=== PATIENT | female | born 1980 | race Caucasian/White ===

== ENCOUNTER 2019-04-01 09:36 | Emergency (ER) | payer OTHER ==
[~2019-04-01] VITALS: Ht 167.6 cm; Wt 78.5 kg
[2019-04-01 09:43] VITALS: Ht 167.6 cm; Wt 78.5 kg
[2019-04-01 10:43] LABS: BASOPHIL % 1.5 % (0-2); PLATELET COUNT 306 x10^3mcL (130-400)
[2019-04-01 10:52] LABS: CALCIUM 9.1 mg/dL (8.5-10.1); CARBON DIOXIDE 28.4 mmol/L (21-32); CHLORIDE SERUM 104 mmol/L (98-107); CREATININE SERUM 0.9 mg/dL (0.6-1.0); GFR1 > 60 mL/min; GLUCOSE SERUM 84 mg/dL (74-106); POTASSIUM SERUM 3.3 mmol/L (3.5-5.1); SODIUM SERUM 141 mmol/L (136-145)
[2019-04-01 12:04] VITALS: BP 132/84
== END 2019-04-01 12:04 | disposition home or self-care (01) ==
LOC: ED 09:36
PROVIDERS: Emergency Medicine
DX: K04.7 Periapical abscess without sinus (principal); R07.89 Other chest pain; F17.210 Nicotine dependence, cigarettes, uncomplicated
CPT/HCPCS: 36415; 99406; J1885; Q0092

== ENCOUNTER 2019-05-12 21:47 | Inpatient (IN) | payer OTHER ==
[~2019-05-12] VITALS: Ht 152.4 cm; Wt 68.0 kg
--- NOTE | 2019-05-12 21:58 | NUR ---
PATIENT WAS BROUGHT IN BY EMS WITH REPORT OF PATIENT CALLINGG 911 REPORTING SHE IS SCARED. PATIENT IS NOT GIVING ANY INFORMATION. WEEPY AND APPEARS ANXIOUS. PATIENT WAS SEEN BY MD. EKG WAS DONE. PATIENT SINGING AND TALKINGTO HERSELF.
[2019-05-12 22:18] LABS: BASOPHIL % 0.9 % (0-2); PLATELET COUNT 317 x10^3mcL (130-400)
[2019-05-12 22:19] LABS: RED CELL DISTRIBUTION WIDTH 15.1 % (11.5-14.5)
--- NOTE | 2019-05-12 22:28 | NUR ---
PATIENT IS UNCOOPERATIVE, REFUSING BLOOD DRAW, REFUSING TO REMOVE HER CLOTHER FOR XRAY. PATIENT HAVING BOUTS OF BEING WEEPY.MD AWARE PATIENT IS REFUSING TX, STATING SHE WANTS TO LEAVE BUT CANNOT TELL WHERE SHE LIVES.
--- NOTE | 2019-05-12 22:30 | NUR ---
PT SINUS TACYCARDIA ON CM PT HAVING HALLUCINATIONS AND CRYING TALKING TO HER SISTER, FELIX, NO FAMILY MEMBER AT BEDSIDE AT THIS TIME, MD MORTON MADE AWARE, PER MD MORTON PLACE PT ON SOFT RESTRAINTS, RESTRAINT FORM SIGNED BY MD MORTON AND PLACED IN PT CHART, BUE AND BLE SOFT RESTRAINTS IN PLACED, +PMSC TO ALL EXTREMITIES, SHIRIN POWERS MADE AWARE.
--- NOTE | 2019-05-12 22:31 | NUR ---
PT MOM CONTACTED PER PCI X2, HENRI [phone], NO ANSWER AND VOICEMAIL NOT SET-UP, UNABLE TO LEAVE A MESSAGE WITH [facility] [place], MD MORTON AND SHIRIN RN MADE AWARE
[2019-05-12 22:32] LABS: CALCIUM 8.7 mg/dL (8.5-10.1); CHLORIDE SERUM 102 mmol/L (98-107); CREATININE SERUM 0.9 mg/dL (0.6-1.0); GFR1 > 60 mL/min; GLUCOSE SERUM 81 mg/dL (74-106); POTASSIUM SERUM 3.7 mmol/L (3.5-5.1); SODIUM SERUM 140 mmol/L (136-145)
[2019-05-12 22:37] LABS: ALBUMIN 3.9 g/dL (3.4-5.0); ALKALINE PHOSPHATASE 81 U/L (46-116); ALT/SGPT 19 U/L (14-59); AST/SGOT 18 U/L (15-37); BILIRUBIN TOTAL 0.62 mg/dL (0.20-1.00); CHOLESTEROL 191 mg/dL (<200); TOTAL PROTEIN, SERUM 6.8 g/dL (6.4-8.2)
--- NOTE | 2019-05-12 22:59 | NUR ---
INFORMED OF PT NEED TO BE PLACED IN RESTRAINTS FOR PT SAFETY. PT CONTINUES TO BE ALTERED, UNABLE TO CLEARLY ANSWER QUESTIONS. PT REPEATEDLY STATING "I JUST WANT TO GO HOME", HOWEVER UNABLE TO PROVIDE HER NAME, ADDRESS, OR ANY INFORMATION. PT REPEATEDLY STATING "I JUST WANT TO GO HOME". EXPLAINED TO PT THAT SHE IS NOT BEHAVING APPROPRIATELY AND UNABLE TO ANSWER OUR QUESTIONS OR PROVIDE US WITH INFORMATION AND WOULD BE UNSAFE FOR HER TO LEAVE THE HOSPITAL IN HER CONDITION. PT REPLIED "I DIDN'T SAY ANYTHING. I'M NOT GOING TO DO ANYTHING. WHY IS THAT UNSAFE?". THEN STARTED REPEATING "WHY ARE YOU GUYS DOING TO THIS ME?" AND BEGAN CRYING. PT ABLE TO FOLLOW INSTRUCTIONS TO LAY BACK ON THE BED. PT CLOTHING REMOVED AND PLACED IN HOSPITAL GOWN. THEN PT YELLED OUT "IS THAT MY MOM? IT CAN'T BE MY MOM! SHE'S GOING TO IF SHE'S HERE." INFORMED PT THAT NO ONE IS HERE FOR HER AT THIS TIME. THEN PT YELLED OUT "IS THAT MY SISTER? I CAN HEAR HER VOICE! IS THAT MY SISTER?". ASKED PT TO TELL ME HER MOTHER AND SISTER'S NAME, PT JUST CONTINUED TO CRY OUT LOUD AND KEPT ASKING IF HER SISTER WAS HERE. THEN SHE STATED "FELIX" IS HER SISTER'S NAME. WHILE PLACING PT ON RESTRAINTS PT LOOKED AT ME AND EMT GENA STATING "WHY ARE YOU SO MEAN?".EXPLAINED TO PT THAT WE ARE HERE TO HELP HER. PT CONTINUED TO CRY AND RETURNED TO LAYING POSITION.
--- NOTE | 2019-05-13 00:09 | NUR ---
PATIENT IS UNCOOPERATIVE, TOOK THE MONITOR OFF EXPRESSING SHE WANTS TO LEAVE.SHE WAS PUT IN DIEUDONNE WRIST AND LEG RESTRAINT.PATIENT IS CALM AND SLEEPING.
[2019-05-13 00:59] LABS: AMPHETAMINE QUAL UR POSITIVE (See below)
--- NOTE | 2019-05-13 01:30 | NUR ---
REMOVED RESTRAINTS FROM DIEUDONNE LOWER EXTREMITIES.PT IS SLEEPING WITH RESP EVEN AND UNLABORED. REMAINS ON SCHOOL BUS MECHANIC AND VIEW FROM NURSES' STATION.
[2019-05-13 01:36] LABS: UA SPECIFIC GRAVITY >=1.030 (1.005-1.035); microscopic required? YES; urine erythrocyte 1+ (NEGATIVE)
--- NOTE | 2019-05-13 02:20 | NUR ---
REMOVED DIEUDONNE UPPER RESTRAINTS.
--- NOTE | 2019-05-13 02:26 | NUR ---
ADMITTED PT FROM ER FOUND ALTERED IN THE [place] STATION LAST NIGHT AND BROUGHT IN BY PARAMEDICS.PT DROWSY BUT EASILY AROUSABLE.REFUSED ANY CARE AT THIS TIME AND REFUSING TO ANSWERS ANY QUESTIONS AT THIS TIME.NO AGITATION AT THIS TIME.NURSE AT BEDSIDE TO ASSIST WITH ADLS.BP 112/76 MMHG,HR 96.ATTEMPTED TO CALL MOTHER BUT VOICEMAIL NOT SET-UP TO LEAVE MESSAGE.WILL TRY AGAIN LATER.ADMISSION CARE RENDERED,WILL CONTINUE TO MONITOR.
--- NOTE | 2019-05-13 02:30 | NUR ---
REPORT WAS GIVEN TO TIMOTHY. PATIENT TRANSPOERTED TO ROOM 216.
[2019-05-13 02:37] VITALS: BP 112/76
--- NOTE | 2019-05-13 05:06 | NUR ---
PT SLEPT THROUGHOUT THE NIGHT. NO ACUTE EVENTS OVERNIGHT. COMFORT AND SAFETY MEASURES MAINTAINED. ALL NEEDS ASSESSED AND ATTENDED TO. WILL CONTINUE TO MONITOR AND ENDORSE CARE TO DAY SHIFT NURSE.
[2019-05-13 05:47] VITALS: BP 100/63
[2019-05-13 06:34] LABS: CALCIUM 7.7 mg/dL (8.5-10.1); CARBON DIOXIDE 26.4 mmol/L (21-32); CHLORIDE SERUM 104 mmol/L (98-107); CREATININE SERUM 0.7 mg/dL (0.6-1.0); GFR1 > 60 mL/min; GLUCOSE SERUM 60 mg/dL (74-106); MAGNESIUM 1.7 mg/dL (1.8-2.4); PHOSPHOROUS 3.5 mg/dL (2.5-4.9); POTASSIUM SERUM 3.2 mmol/L (3.5-5.1); SODIUM SERUM 140 mmol/L (136-145)
[2019-05-13 06:59] LABS: BASOPHIL % 0.4 % (0-2); PLATELET COUNT 262 x10^3mcL (130-400)
[2019-05-13 07:00] LABS: RED CELL DISTRIBUTION WIDTH 15.3 % (11.5-14.5)
--- NOTE | 2019-05-13 07:30 | NUR ---
PT WILL MOVE TO PHYSICAL STIMULI, BUT REMAINS SLEEPING. RESP EVEN AND UNLABORED. NO DISTRESS NOTED. AFEBRILE, VS WNL. NORMAL S1S2 NOTED. ABDOMEN SOFT, NONTENDER, NONDISTENDED. BOWEL SOUNDS ACTIVE X4. PT HAS R LATERAL THIGH SCRATCHES, ANITA. NO S/S OF INFECTION NOTED. IVF RUNNING TO RFA. SITE WNL. CALL LIGHT WITHIN REACH. BED IN LOWEST POSITION. EPIC BEACON ANALYST IN ROOM ON ONE TO ONE SUPERVISION.
--- NOTE | 2019-05-13 08:14 | NUR ---
SPOKE WITH KELSI (#[id number]) FROM [facility]ISON CONTROL ( ). KELSI STATE SHE WILL CLOSE OUT THIS CASE, THE VS ARE STABLE AND THE TX ORDERED IS APPROPRIATE. GIO MEDINA CHARGE NURSE MADE AWARE.
[2019-05-13 08:59] VITALS: BP 132/66
--- NOTE | 2019-05-13 10:00 | NUR ---
DR. SOARES AND MED TEAM MET WITH PT BUT UNABLE TO AWAKEN HER. RESP EVEN AND UNLABORED. VS WNL. WILL CONTINUE TO MONITOR. VICE PRESIDENT NETWORK AT BEDSIDE ON ONE TO ONE SUPERVISION. CALL LIGHT WITHIN REACH.
--- NOTE | 2019-05-13 12:40 | NUR ---
PT AWAKED TO VERBAL STIMULI THEN FEEL BACK TO SLEEP. PT REFUSED TO USE BEDPAN AT THIS TIME. DUE IV MED GIVEN. PRINTED CIRCUIT BOARD PANELS PLATER IN ROOM ON ONE TO ONE SUPERVISION. FALL PROTOCOL IN PLACE. RESP EVEN AND UNLABORED. NO DISTRESS NOTED. CALL LIGHT WITHIN REACH.
--- NOTE | 2019-05-13 15:15 | NUR ---
PT IS AWAKE, AAOX4. AGITATED, CRYING, STATING, "I WANT TO GO HOME." ATIVAN 2MG IVP GIVEN. PT IS CALM AND COOPERATIVE AT THIS TIME. CALL LIGHT WITHIN REACH. BED IN LOW POSITION. SURETY BOND AGENT IN ROOM ON ONE TO ONE SUPERVISION.
--- NOTE | 2019-05-13 15:43 | NUR ---
PT WILL MOVE TO PHYSICAL STIMULI, BUT REMAINS SLEEPING. RESP EVEN AND UNLABORED. NO DISTRESS NOTED. AFEBRILE, VS WNL. NORMAL S1S2 NOTED. ABDOMEN SOFT, NONTENDER, NONDISTENDED. BOWEL SOUNDS ACTIVE X4. PT HAS R LATERAL THIGH SCRATCHES, ANITA. NO S/S OF INFECTION NOTED. IVF RUNNING TO RFA. SITE WNL. CALL LIGHT WITHIN REACH. BED IN LOWEST POSITION.
--- NOTE | 2019-05-13 17:00 | NUR ---
URINE SAMPLE TAKEN TO LAB FOR URINE CX. DR. CHANEY SPOKE WITH PT'S MOTHER WHILE PT WAS SLEEPING. DR. CHANEY STATED ONCE THE PT IS MORE AWAKE A PSYCH EVAL WILL BE ORDERED. FLUIDS AND ATIVAN PRN WILL BE GIVEN ALONG WITH FOLLOW UP LABS. MOTHER AGREED WITH POC.
[2019-05-13 17:38] VITALS: BP 102/60
--- NOTE | 2019-05-13 18:12 | NUR ---
MAG IVPB STARTED. PT IS AAOX4, GROGGY WHEN AWAKE, MOSTLY SLEEPING THROUGH OUT THE DAY. RESP EVEN AND UNLABORED. VS WNL. NO DISTRESS NOTED. DRY END TESTER AT BESIDE ON ONE TO ONE SUPERVISION. CALL LIGHT WITHIN REACH.
[2019-05-13 19:25] VITALS: BP 92/60
--- NOTE | 2019-05-13 19:25 | NUR ---
RECEIVED PT ASLEEP BUT EASILY AROUSABLE AND WENT TO REACH FOR HER LINES RIGHT AWAY WHEN AWAKENED.DISCOURAGED BEHAVIOR.REFUSED TO ANSWERS ANY QUESTION AT THIS TIME.BP 92/60 MMHG,HR 80.K-RIDER INFUSING AT THIS TIME AND TOLERATING WELL.ATIVAN 2 MG IVP ADMINISTERED.RECEIVED A CALL FROM MOTHER AND INFORMED NURSE THAT THIS WEEK PT VERBALIZED TO SISTER THAT SHE WANT TO END HER LIFE.S[place] AND RARELY COMMUNICATE WITH FAMILY AND SUDDENLY REACH OUT TO SISTER AND INFORMED HER OF HER PLAN.SITTER AT BEDSIDE AT THIS TIME.DOESN'T VERBALIZED ANYTHING AT THIS TIME.WILL CLOSELY MONITOR.WILL INFORM MD ESTEVEZ.
--- NOTE | 2019-05-13 21:56 | NUR ---
DR. MEDEROS AND DR. VINES MADE AWARE OF MOTHERS CONCERN OF PT'S VERBALIZING SHE WANTS TO END HER LIFE THIS WEEK.WILL CONSULT PSYCH WHEN PT MORE RESPONSIVE.
--- NOTE | 2019-05-14 04:38 | NUR ---
PT SLEPT WELL ALL NIGHT WITH NURSE AT BEDSIDE TO ASSIST WITH ADLS.NO VERBALIZATION OF SUICIDE.ENCOURAGED TO VERBALIZED FEELINGS BUT CONTINUE TO REFUSED ALL QUESTIONS ASKED.ALL NEEDS MET.WILL CONTINUE TO MONITOR.
[2019-05-14 06:29] LABS: BASOPHIL % 0.5 % (0-2); PLATELET COUNT 275 x10^3mcL (130-400)
[2019-05-14 06:34] VITALS: BP 109/72
[2019-05-14 07:07] LABS: CALCIUM 7.9 mg/dL (8.5-10.1); CARBON DIOXIDE 25.9 mmol/L (21-32); CHLORIDE SERUM 106 mmol/L (98-107); CREATININE SERUM 0.6 mg/dL (0.6-1.0); GFR1 > 60 mL/min; PHOSPHOROUS 2.7 mg/dL (2.5-4.9); POTASSIUM SERUM 3.9 mmol/L (3.5-5.1); SODIUM SERUM 140 mmol/L (136-145)
[2019-05-14 07:16] LABS: RED CELL DISTRIBUTION WIDTH 14.9 % (11.5-14.5)
[2019-05-14 07:35] LABS: GLUCOSE SERUM 57 mg/dL (74-106)
--- NOTE | 2019-05-14 08:02 | NUR ---
DR CHANEY PAGED FOR LAB CALL ABOUT GLUCOSE OF 57. GLUCOSE CHECKED AND CAME BACK 50 AND 56. PT IS ASYMPTOMATIC, REPORTS NO HISTORY OF DM, IS EATING BREAKFAST. WILL MONITOR.
[2019-05-14 09:00] VITALS: BP 108/63
[2019-05-14 13:33] VITALS: BP 97/59
--- NOTE | 2019-05-14 13:59 | NUR ---
IN TO SEE PATIENT AND ASSESS NEEDS BEFORE GOING TO LUNCH. PAITENT RESTING COMFORTABLY IN BED WITH SITTER AT BEDSIDE. ALL NEEDS MET. WILL REASSESS AFTER LUNCH.
[2019-05-14 17:45] VITALS: BP 104/69
--- NOTE | 2019-05-14 19:05 | NUR ---
REPORT RECIEVED FROM DAY SHIFT RN. PATIENT WAS SEEN AND IS RESTING COMFORTABLY IN BED A/OX4. ANSWERING QUESTIONS WITH CLEAR SPEECH AND APPROPIATELY. FAMILY AT BEDSIDE. NO DISTRESS NOTED DENIES CHEST PAIN/PRESSURE. NO C/O PAIN. IV TO THE RFA. PATENT AND INTACT. NO REDNESS OR SWELLING NOTED. BREATHING EVEN AND UNLABORED ON ROOM AIR. NO SOB OR RESP DISTRESS NOTED. COMFORT AND SAFETY MEASURES IN PLACE. CALL LIGHT IS WITHIN REACH. BED IS LOCKED AND IN THE LOWEST POSITION. SIDE RAILS UP X2. CALL LIGHT IS WITHIN REACH. WILL CONTINUE TO MONITOR.
--- NOTE | 2019-05-14 19:38 | NUR ---
REPORT GIVEN TO MARIO ALBERTO POWERS. PATIENT RESTING COMFOETABLY IN BED WITH PARENTS AT BEDSIDE. PATIENT IS REQUESTING TO GO HOME. INFORMED PATIENT THAT WE ARE WAITING FOR DR ALLEN. ALL QUESTIONS AND CONCERNS ADDRESSED. ALL CARES ENDORSED.
--- NOTE | 2019-05-14 20:15 | NUR ---
PATIENT WANTS TO LEAVE A. DR RAMOS MADE AWARE. SHE SAID SHE WILL CONSULT WITH DR HUDSON
--- NOTE | 2019-05-14 20:40 | NUR ---
RANDOM BS CHECK DONE. PATIENT STATES SHE FEELS LIKE HER BS IS LOW, SWEATY, AND HUNGER. BS AT 147. GAVE SANDWICH AND JUICE. NO DISTRESS NOTED.
--- NOTE | 2019-05-14 21:05 | NUR ---
DR RAMOS CALLED SAYING SHE'LL SPEAK WITH THE PATIENT ABOUT LEAVING AMA
--- NOTE | 2019-05-14 21:28 | NUR ---
DR RAMOS SPOKE WITH PATIENT AND PATIENT DECIDED TO STAY
--- NOTE | 2019-05-14 23:53 | NUR ---
PATIENT GOT DRESSES AND SAID SHE WANTED TO LEAVE. PATIENT CALLED MOTHER'S PHONE NUMBER MULTIPLES TIMES WITH NOT ANSWER. INFORMED PATIENT THAT IT IS NOT SAFE FOR HER TO LEAVE. PATIENT SAID SHE WILL WALK HOME TO [place]. PATIENT AGREED TO STAY AND WAIT FOR MOM IN THE MORNING. MADDI GROVES PLACED GOWN BACK ON PATIENT. LEADS REAPPLIED WELL. PATIENT SAYING SOMEONE IS GOING TO GET HER. REPEATEDLY SAYING "THEY'RE GOING TO GET ME". PATIENT WANTS SLEEPING PILL. ADMINISTERED AMBIEN PRESCRIBED. NO DISTRESS NOTED. CALL LIGHT IS WITHIN REACH. WILL CONTINUE TO MONITOR.
--- NOTE | 2019-05-15 00:06 | NUR ---
PATIENT'S MOTHER CALLED. CHARGE NURSE SPOKE WITH HER AND DR RAMOS WILL SPEAK TO HER. UPDATED DR RAMOS ON SITUATIONS WELL.
--- NOTE | 2019-05-15 01:27 | NUR ---
TELE PSYCH CONSULT INITIATED. AWAITING CALL BACK.
--- NOTE | 2019-05-15 02:19 | NUR ---
TELE PSYCH CALLED BACK. DID NOT FINISHED CONSULT AND CONSULT WAS CANCELLED BY TELE PSYCH PHYSICIAN BECAUSE HE SAID THE PATIENT WAS "TOO SLEEPY AND UNCOOPERATVIE. DID NOT WANT TO ANSWER QUESTIONS". ALSO [facility] AND [facility] STOPPED WORKING DURING CONSULT. PER TELE PSYCH DOCTOR, RE INITIATE IN THE MORNING WHEN THE PATIENT IS MORE AWAKE. DR RAMOS AWARE.
--- NOTE | 2019-05-15 05:43 | NUR ---
RESTED IN LONG INTERVALS THROUGHOUT THE NIGHT. NO ACUTE CHANGES NOTED. BREATHING EVEN AND UNLABORED ON ROOM AIR. NO SOB NOTED. NO DISTRESS NOTED. IV TO THE RFA. PATENT AND INTACT. NO REDNESS OR SWELLING NOTED. SITTER AT BEDSIDE. COMFORT AND SAFETY MEASURES IN PLACE. SITTER AT BEDSIDE. CALL LIGHT IS WITHIN REACH. WILL CONTINUE TO MONITOR.
[2019-05-15 06:19] VITALS: BP 99/57
[2019-05-15 06:32] LABS: BASOPHIL % 0.5 % (0-2); PLATELET COUNT 271 x10^3mcL (130-400)
[2019-05-15 06:45] LABS: CALCIUM 8.1 mg/dL (8.5-10.1); CHLORIDE SERUM 107 mmol/L (98-107); CREATININE SERUM 0.7 mg/dL (0.6-1.0); GFR1 > 60 mL/min; GLUCOSE SERUM 111 mg/dL (74-106); MAGNESIUM 1.8 mg/dL (1.8-2.4); PHOSPHOROUS 3.2 mg/dL (2.5-4.9); SODIUM SERUM 142 mmol/L (136-145)
[2019-05-15 06:58] LABS: RED CELL DISTRIBUTION WIDTH 14.9 % (11.5-14.5)
--- NOTE | 2019-05-15 07:20 | NUR ---
RECEIVED PT. IN BED A/A/O X3. NO SOB, NO N/V NOTED. PT. APPEARS NOT TO WANT TO ENGAGE IN CONVERSATION MUCH. PT. DENIES ANY PAIN AT THIS TIME. PT. DENIES ANY SUICIDAL IDEATION AT THIS TIME. IV SITE NOTED TO R FA. BED IN LOW POS., CALL LIGHT WITHIN REACH. SIDE RAILS UP X3.
[2019-05-15 08:19] VITALS: Ht 152.4 cm; Wt 68.0 kg
[2019-05-15 10:05] VITALS: BP 96/59
[2019-05-15 13:00] VITALS: BP 109/67
--- NOTE | 2019-05-15 14:13 | NUR ---
PT. APPEARS VERY AGITATED AND RESTLESS. PT. REMOVED GOWN AND TELE. MONITOR. PT. PUT ON HER REGULAR CLOTHES AND STATED " I'M LEAVING. I NEED TO LEAVE." ATIVAN 2MG IV GIVEN.
--- NOTE | 2019-05-15 16:03 | NUR ---
PT. APPEARS CALM IN BED AT THIS TIME.
--- NOTE | 2019-05-15 16:18 | NUR ---
PT. STATED " I FEEL VERY ANXIOUS RIGHT NOW. CAN I HAVE MY MEDICATION AGAIN ? " ATIVAN 2MG IV GIVEN.
--- NOTE | 2019-05-15 17:27 | NUR ---
REMAINS IN STABLE CONDITION AT THIS TIME. WILL CONTINUE TO MONITOR. LITIGATION ASSISTANT AT BEDSIDE TO MAINTAIN SAFETY.
[2019-05-15 17:29] VITALS: BP 101/61
--- NOTE | 2019-05-15 20:10 | NUR ---
Resting at this time. Verbally responsive. Restless and anxious earlier, ativan given as ordered with good effect. Calm at this time. No respiratory distress noted on room air. Denies pain. Denies n/v. Mother at the bedside. Will cont.to monitor. Safety maintained. Call light within reach.
[2019-05-15 21:00] VITALS: BP 121/71
--- NOTE | 2019-05-15 23:00 | NUR ---
Seen by Dr. Wise.
--- NOTE | 2019-05-16 05:07 | NUR ---
Afebrile. No significant change in condition noted. Calm at this time. No suicidal ideation noted. Safety maintained. Sitter present.
[2019-05-16 05:57] VITALS: BP 92/60
[2019-05-16 06:44] LABS: BASOPHIL % 0.8 % (0-2); PLATELET COUNT 265 x10^3mcL (130-400)
[2019-05-16 06:45] LABS: CALCIUM 7.9 mg/dL (8.5-10.1); CARBON DIOXIDE 28.8 mmol/L (21-32); CHLORIDE SERUM 107 mmol/L (98-107); CREATININE SERUM 0.7 mg/dL (0.6-1.0); GFR1 > 60 mL/min; GLUCOSE SERUM 86 mg/dL (74-106); MAGNESIUM 1.6 mg/dL (1.8-2.4); PHOSPHOROUS 3.3 mg/dL (2.5-4.9); POTASSIUM SERUM 3.8 mmol/L (3.5-5.1); SODIUM SERUM 142 mmol/L (136-145)
[2019-05-16 06:56] LABS: RED CELL DISTRIBUTION WIDTH 14.6 % (11.5-14.5)
--- NOTE | 2019-05-16 07:30 | NUR ---
RECEIVED PT FROM CONSTRUCTION COST ESTIMATOR RN. Kennedy/VITO. TELE#30. DENIES CHEST PAIN/PRESSURE. RESPIRATIONS EQUAL AND UNLABORED ON RA. DENIES SOB. OT DEBUES ANY PAIN AT THIS TIME. PT STATES "I AM STARTING TO FEEL A LITTLE ANXIOUS." IV TO LH SALINE LOCKED. NO REDNESS OR SWELLING NOTED. NOTED SCRATCHEST TO THIGH, SUPERVISOR [employer]. NO DRAINAGE OR SWELLING NOTED. PT DENIES ANY THOUGHTS OF HARMING HERSELF OR OTHERS. [address], SITTER AT BEDSIDE. WILL CONTINUE TO MONITOR. CALL LIGHT IN REACH. BED IN LOWEST POSITION.
--- NOTE | 2019-05-16 09:13 | NUR ---
Packet received via fax. Will begin looking for placement for this pt. Will contact with any updates.
[2019-05-16 09:30] VITALS: BP 106/64
--- NOTE | 2019-05-16 09:33 | NUR ---
PT IN BED SLEEPING. NO ACUTE RESP DISTRESS NOTED ON RA. GIVEN PO MEDS. TOLERATED WELL. IV SALINE LOCKED TO LH. NO REDNESS OR SWELLING NOTED. PT DENIES ANY THOUGHTS OF HARMING HERSELF OR OTHERS AT THIS TIME. SITTER AT BEDSIDE. WILL CONTINUE TO MONITOR. CALL LIGHT IN REACH. BED IN LOWEST POSITION.
--- NOTE | 2019-05-16 09:38 | NUR ---
Contacted the following facilities regarding placement: [facility]: s/w [place], state unable to accept pt at this time. [facility]: Rang continuously, unable to leave message. [facility]: s/w [place], states no beds at this time, but will review packet for future openings. packet faxed for waitlist. [facility]: no beds at this time. [facility]: s/w Kaley, states no beds at this time, is not accepting packets right now.
--- NOTE | 2019-05-16 14:40 | NUR ---
PT IN BED RESTING. NO ACUTE RESP DISTRESS NOTED ON RA. PT C/O FEELING ANXIOUS. MEDICATED PER EMAR. SITTER AT BEDSIDE. [address] WILL CONTINUE TO MONITOR. CALL LIGHT IN REACH. BED IN LOWEST POSITION.
--- NOTE | 2019-05-16 17:20 | NUR ---
PT SITTING UP IN BED. PT STATES "I FEEL REALLY ANXIOUS. I REALLY WANT TO JUST GO. I WANT TO GET OUT OF HERE." PT ASKING WHAT WOULD HAPPEN IF SHE WERE TO LEAVE. PT INFORMED IF SHE LEFT DUE TO THE HOLD WE WOULD HAVE TO CALL POLICE DEPARTMENT. MOTHER AT BEDSIDE. PT ABLE TO CALM DOWN. PT STATES "I JUST WANT TO REST" SITTER AT BEDSIDE. WILL CONTINUE TO MONITOR. CALL LIGHT IN REACH. BED IN LOWEST POSITION.
[2019-05-16 17:25] VITALS: BP 110/57
--- NOTE | 2019-05-16 18:46 | NUR ---
PT SITTING UP IN BED. PT CRYING. FAMILY AT BEDSIDE. PT STATING "SOMEONE IS OUT TO GET ME" PT VERY ANXIOUS. CALLED FLIGHT OPERATIONS INSPECTOR PHONE SPOKE WITH DR. RAMOS PER DR. RAMOS WILL ORDER ATIVAN IV ONE TIME DOSE.
[2019-05-16 19:30] VITALS: BP 113/80
--- NOTE | 2019-05-16 19:43 | NUR ---
[facility] NOC shift is aware of patient and will continue to call contracted [facility] facilities for bed placement.
--- NOTE | 2019-05-16 22:21 | NUR ---
Still no beds available at the following [facility] contracted facilities. [facility], spoke with Pam. [facility], spokew hetal Hernandez. [facility], left message @ [phone]. [facility], spoke with Abebe. [facility], spoke with Jennifer. [facility], spoke with Jennifer. [facility], spoke with Katerina. [facility], spoke with Sj. Unit will be notified if and when a bed becomes available.
--- NOTE | 2019-05-16 22:35 | NUR ---
PT C/O INSOMNIA. MEDICATED WITH AMBIEN PER OCT. WILL CONTINUE TO MONITOR.
--- NOTE | 2019-05-17 00:05 | NUR ---
PT LAYING DOWN IN BED WITH EYES CLOSED, BREATHING EVEN AND UNLABORED ON RA. NO ACUTE DISTRESS NOTED. SITTER AT BESIIDE. BED AT LOWEST SETTING. SIDE RAILS X2 UP. CALL LIGHT WITHING REACH. WILL CONTINUE TO MONITOR.
--- NOTE | 2019-05-17 05:52 | NUR ---
PT SLEPT AT INTERVALS THROUGHOUT THE NIGHT. BREATHING EVEN AND UNLABORED ON RA. NO SIGNIFICANT CHANGE DURING SHIFT. ALL NEEDS ASSESSED AND ATTENDED TO. NO ACUTE DISTRESS NOTED. PT DENIES HAVING SUICIDAL THOUGHTS. SITTER AT BEDSIDE. BED AT LOWEST SETTING. SIDE RAILS X2 UP. CALL LIGHT WITHING REACH. WILL ENDORSE CARE TO AM NURSE.
[2019-05-17 06:07] VITALS: BP 91/53
[2019-05-17 06:48] LABS: BASOPHIL % 0.7 % (0-2); PLATELET COUNT 267 x10^3mcL (130-400)
[2019-05-17 07:14] LABS: RED CELL DISTRIBUTION WIDTH 15.2 % (11.5-14.5)
[2019-05-17 07:15] LABS: CALCIUM 7.6 mg/dL (8.5-10.1); CARBON DIOXIDE 24.8 mmol/L (21-32); CHLORIDE SERUM 107 mmol/L (98-107); CREATININE SERUM 0.8 mg/dL (0.6-1.0); GFR1 > 60 mL/min; GLUCOSE SERUM 89 mg/dL (74-106); MAGNESIUM 1.6 mg/dL (1.8-2.4); POTASSIUM SERUM 3.7 mmol/L (3.5-5.1); SODIUM SERUM 141 mmol/L (136-145)
--- NOTE | 2019-05-17 07:30 | NUR ---
RECEIVED PT FROM DYE WORKER RN. Kennedy/VITO. TELE#30. DENIES CHEST PAIN/PRESSURE. RESPIRATIONS EQUAL AND UNLABORED ON RA. DENIES SOB. PT CALM, BUT TENSE. PT ASKING WHEN SHE CAN LEAVE. REINFORCE TO PT [address]. PT VERBALIZED UNDERSTANDING. [address] SITTER AT BEDSIDE. WILL CONTINUE TO MONITOR. CALL LIGHT IN REACH. BED IN LOWEST POSITION.
--- NOTE | 2019-05-17 07:45 | NUR ---
No updates on placement per nightshift, contacted the following facilities: [facility]: s/w Pam, [facility]: s/w Mary, facility is full for the night. [facility]: No answer, left voicemail. [facility]: s/w Abebe No beds available. [facility]: s/w Nancy, states no available beds. [facility]: s/w Jennifer, states no beds available, packet on file. [facility]: s/w Erika, states possible d/cs in the morning, requests to call back during AM shift. [facility]: s/w Sj, no beds at this time. Day shift will continue to actively work on finding placement. Will contact with any updates.
[2019-05-17 09:05] VITALS: BP 97/57
--- NOTE | 2019-05-17 09:06 | NUR ---
PT SITTING UP IN BED. CALM AND COOPERATIVE AT THIS TIME. NO ACUTE RESP DISTRESS ON RA. GIVEN PO MEDS. TOLERATED WELL. SITTER AT BEDSIDE. WILL CONTINUE TO MONITOR. CALL LIGHT IN REACH. BED IN LOWEST POSITION.
--- NOTE | 2019-05-17 09:39 | NUR ---
SPOKE WITH PT MOTHER HENRI SILVESTRE, WOULD LIKE TO SPEAK WITH DELMAR MARTINEZ TO GET AN UPDATE ON DAUGHTERS CONDITION. SPOKE WITH PT, PT IS OKAY WITH DELMAR MARTINEZ GIVING MOM AND UPDATE. DELMAR MARTINEZ MADE AWARE. PER DELMAR MARTINEZ WILL CALL MOTHER AND SPEAK WITH HER.
[2019-05-17 13:34] VITALS: BP 101/61
--- NOTE | 2019-05-17 14:08 | NUR ---
PT SITTING IN CHAIR AT BEDSIDE. NO ACUTE RESP DISTRESS ON RA. DR. ALLEN SPOKE WITH PT. PT FEELING ANXIOUS. PT CRYING. PT STATES "I JUST WANT TO GO HOME. I WANT TO GET OUT OF HERE" MEDICATED PER EMAR. PT ASKING TO SPEAK WITH HER MOTHER. PT GIVEN PHONE TO CALL MOTHER. PT CALM AFTER SPEAKING WITH HER MOTHER. SITTER AT BEDSIDE. WILL CONTINUE TO MONITOR. CALL LIGHT IN REACH. BED IN LOWEST POSITION.
--- NOTE | 2019-05-17 14:14 | NUR ---
[facility]: s/w Beth, no beds at this time, possible openings later today, packet on file for waitlist. [facility]: s/w Sagar, states no openings, packet on file for waitlist. [facility]: s/w Stephen, states no openings today, completely saturated. [facility]: s/w Ivone No openings today. [facility]: rang continously, unable to leave message, packet faxed. [facility]: s/w Alka, no beds at this time , packet on file. Will continue to look for placement. Will contact with any updates.
--- NOTE | 2019-05-17 17:21 | NUR ---
PT ATTEMPTING TO LEAVE. PT STATES "EVERYONE IS OUT TO GET ME. YOU GUYS ARE LAUGHING AT ME. YOU ARE MAKING ME SEEM CRAZY BUT I'M NOT." PT STATES "I JUST WANT TO GO HOME. I JUST WANT TO HAVE A CIGARETTE" PT STATES "THE PSYCHIATRIST HASNT SEEN ME." EXPLAINED TO PT DR. ALLEN WAS AT BEDSIDE WITH HER AROUND 1500. PT STATES "I DONT REMEMBER" PT TEARFUL. PT TOLD SHE CAN WALK AROUND UNIT WITH SITTER. PT VERBALIZED UNDERSTANDING. WILL CONTINUE TO MONITOR. CALL LIGHT IN REACH. BED IN LOWEST POSITION.
--- NOTE | 2019-05-17 19:05 | NUR ---
RECEIVED PT SITTING UP IN BED EATING DINNER, NO ACUTE DISTRESS OBSERVED, DENIES PAIN OR DISCOMFORT. FAMILY MEMBERS AT BEDSIDE. 5150 HOLD FOR DANGER TO SELF, DENIES SI OR HI AT THIS TIME. SITTER AT BEDSIDE TO ENSURE SAFETY. AA/OX4, ABLE TO MAKE NEEDS KNOWN, SPEECH CLEAR AND APPROPRIATE. MED-SURG, NO TELE, NO CP, NO EDEMA. BREATHING ON RA, EVEN AND UNLABORED, NO SOB OR DYSPNEA OBSERVED. DENIES N/V/D. VOIDS URINE FREELY. AMBULATORY AND ABLE TO REPOSITION SELF IN BED. NO IV ACCESS AT THIS TIME, PT STATES IT ACCIDENTALLY CAME OUT. WILL REINSERT LATER PER PT'S REQUEST SINCE SHE IS EATING DINNER AT THE MOMENT. COMFORT AND SAFETY MEASURES IN PLACE. ALL NEEDS ASSESSED AND ATTENDED TO. CALL LIGHT WITHIN REACH. WILL CONTINUE TO MONITOR
--- NOTE | 2019-05-17 19:10 | NUR ---
PT AMBULATING HALLWAY ACCOMPANIED BY FAMILY MEMBER AT SITTER.
[2019-05-17 19:35] VITALS: BP 110/69
--- NOTE | 2019-05-17 19:37 | NUR ---
PT REQUESTING AMBIEN SLEEPING PILL STATING SHE RECEIVED IT LAST NIGHT. DR. RAMOS MADE AWARE. WILL ANTICIPATE NEW ORDERS
--- NOTE | 2019-05-17 19:55 | NUR ---
PT REFUSING IV REINSERTION AT THIS TIME. PT EDUCATED FOR NEED AND IMPORTANCE OF IV ACCESS IN CASE OF EMERGENCY, PT STILL INSISTS. REFUSAL FORM SIGNED BY PT AND PLACED IN CHART. DR. RAMOS MADE AWARE OF THE ABOVE.
--- NOTE | 2019-05-17 20:00 | NUR ---
PT FOUND IN POSITION LAYING IN BED CRYING, YELLING TO MOTHER, "YOU'RE LYING TO ME." PT YELLING, "YOU'RE ALL LAUGHING AT ME." PT BEGAN HITTING SELF IN THE HEAD AMD SCREAMING, "EVERYONE IS LYING TO ME." PT'S SISTER AT BEDSIDE WELL ATTEMPTING TO CONSOLE PT.
--- NOTE | 2019-05-17 20:18 | NUR ---
Shift report given, will continue to monitor notes and help with placement
--- NOTE | 2019-05-17 20:36 | NUR ---
DR. RAMOS TO ORDER HALDOL X1 AND ADJUST ATIVAN PRN DOSE
--- NOTE | 2019-05-18 06:27 | NUR ---
SPOKE WITH PT'S MOTHER WHO CALLED, REQUESTING UPDATE ON DAUGHTER, WHICH WAS PROVIDED. MOTHER VOICING CONCERNS ABOUT PT'S PSYCH PLACEMENT AND REQUESTING TO TALK WITH DR. ALLEN OR PSYCH CONSULT. MOTHER'S PHONE NUMBER ON FACESHEET IS INCORRECT. CORRECT CONTACT NUMBER IS CELLPHONE AT [phone]. WILL ENDORSE TO DAY SHIFT NURSE. NO ACUTE DISTRESS OBSERVED AT THIS TIME, PT LAYING IN BED, BREATHING EVEN AND UNLABORED. SITTER REMAINS AT BEDSIDE TO ENSURE SAFETY. COMFORT AND SAFETY MEASURES MAINTAINED. ALL NEEDS ASSESSED AND ATTENDED TO. CALL LIGHT WITHIN REACH. WILL CONTINUE TO MONITOR AND ENDORSE CARE TO DAY SHIFT NURSE
--- NOTE | 2019-05-18 07:00 | NUR ---
RECIEVED PT RESTING IN BED WITH NO C/O PAIN OR DISTRESS. SITTER AT BEDSIDE. A/O X4 WITH NO MCDONALD OR DIZZINESS. PT ON 5150 HOLD THAT EXPIRES TONIGHT AT 1999. PT HAS NO IV ACCESS, SIGNED FORM IN CHART. SAFETY PRECAUTIONS IN PLACE, CALL LIGHT WITHIN REACH, WILL MONITOR.
[2019-05-18 08:57] VITALS: BP 112/61
--- NOTE | 2019-05-18 13:19 | NUR ---
PT STABLE, RESTING IN BED WITH NO C/O PAIN OR DISTRESS. SITTER AT BEDSIDE. SAFETY PRECAUTIONS IN PLACE, CALL LIGHT WITHIN REACH, WILL MONITOR.
--- NOTE | 2019-05-18 13:19 | NUR ---
f/u with contracted facilities: [facility]: No beds at this time, packet on file. [facility]: No beds, requests not to fax packet until open beds. [facility]: No openings today. [facility]: No answer, packet refaxed. [facility]: No openings at this time, packet on file. [facility]: Packet on file. No beds.
--- NOTE | 2019-05-18 18:48 | NUR ---
PT STABLE WITH NO C/O PAIN OR DISTRESS. PT MOTHER AND SITTER AT BEDSIDE. PT STILL ON 5150 HOLD. ALL CARES TOLERATED WELL. SAFETY PRECAUTIONS IN PLACE, CALL LIGHT WITHIN REACH, WILL ENDORSE CARE TO NIGHT NURSE.
[2019-05-18 18:52] VITALS: BP 99/69
--- NOTE | 2019-05-18 19:45 | NUR ---
RECEIVED REPORT FROM DAY SHIFT RN. PT RESTING IN BED. AA&O X4. NO SOB NOTED ON ROOM AIR. NO C/O PAIN. PT STARTING TO FEEL ANXIOUS. WILL MEDICATE PER ORDER. NO IV ACCESS. PT SIGNED REFUSAL FORM IN THE CHART. SAFETY MEASURES IN PLACE. SITTER AT BEDSIDE. BED IN LOWEST POSITION. SIDE RAILS UP X2. INSTRUCTED PT TO USE THE CALL LIGHT FOR ASSISTANCE. CALL LIGHT WITHIN REACH. MOTHER AND SISTER AT BEDSIDE TALKING TO THE PT.
--- NOTE | 2019-05-18 19:56 | NUR ---
ATIVAN GIVEN FOR ANXIETY. FAMILY AT BEDSIDE.
--- NOTE | 2019-05-18 20:04 | NUR ---
PT AGITATED. PT STATES SHE'S LEAVING, GOT OUT OF THE ROOM AND STARTED WALKING ALONG THE HALLWAY LOOKING FOR THE EXIT. MOTHER AND SISTER PRESENT AND TRIED TO CALM PT DOWN. SECURITY ACCOMPANIED PT BACK TO HER ROOM. DR RAMOS MADE AWARE AND ORDERED HALDOL IM. SITTER AT BEDSIDE FOR PT'S SAFETY.
[2019-05-18 20:21] VITALS: BP 111/79
--- NOTE | 2019-05-19 00:51 | NUR ---
CONTINUING TO FOLLOW UP WITH FACILITIES FOR PLACEMENT.
[2019-05-19 06:14] VITALS: BP 93/63
--- NOTE | 2019-05-19 06:53 | NUR ---
PT CALMED DOWN AND WAS ABLE TO SLEEP AFTER ADMINISTERING THE HALDOL IM. NO SOB NOTED ON ROOM AIR. NO C/O PAIN. PT SLEEPING AT THIS TIME. NO DISTRESS NOTED. SAFETY MEASURES MAINTAINED. ALL NEEDS ATTENDED TO. SITTER AT BEDSIDE. WILL ENDORSE CONTINUITY OF CARE TO ONCOMING RN.
--- NOTE | 2019-05-19 07:00 | NUR ---
RECIEVED PT RESTING IN BED WITH NO S/S OF ANY DISTRESS OR PAIN. SITTER AT BEDSIDE. SAFETY PRECAUTIONS IN PLACE, CALL LIGHT WITHIN REACH, WILL MONITOR.
[2019-05-19 10:19] VITALS: BP 109/54
--- NOTE | 2019-05-19 11:22 | NUR ---
PT STABLE, RESTING IN BED WITH NO C/O PAIN OR DISTRESS. SITTER AT BEDSIDE. SAFETY PRECAUTIONS IN PLACE, CALL LIGHT WITHIN REACH, WILL MONITOR.
--- NOTE | 2019-05-19 15:53 | NUR ---
ADVERTISING EDITOR WITH PT IN BATHROOM ASSISTING AND MONITORING PT WASHES UP FROM SINK. NO SHOWER PRIVELEDGES PER JUAN JACOBSEN. SAFETY PRECAUTIONS IN PLACE, CALL LIGHT WITHIN REACH, FAMILY AT BEDSIDE, WILL CONTINUE TO MONITOR.
[2019-05-19 18:13] VITALS: BP 105/65
--- NOTE | 2019-05-19 18:22 | NUR ---
PT STABLE AT THIS TIME WITH NO C/O PAIN OR DISTRESS AT THIS TIME. SITTER AND FAMILY AT BEDSIDE. A/O X4 WITH NO C/O MCDONALD OR DIZZINESS. SAFETY PRECAUTIONS IN PLACE, CALL LIGHT WITHIN REACH, WILL ENDORSE CARE TO NIGHT NURSE.
--- NOTE | 2019-05-19 19:27 | NUR ---
PT MEDICATED W/ ATIVAN 1 MG TO HELP HER RELAX AND SLEEP. PT ALSO TOOK OTHER PM MEDS AT THIS TIME.
--- NOTE | 2019-05-19 19:30 | NUR ---
RECEIVED PT IN BED ASLEEP BUT EASILY AROUSABLE. SHE IS ORIENTED X4. SHE IS CALM AT THIS TIME. SHE HAS NO C/O PAIN. NO SOB ON ROOM AIR. PT HAS NO IV ACCESS SHE REFUSED AND SIGNED REFUSAL OF TX PER REPORT. SITTER AT BEDSIDE. WILL CONTINUE TO MONITOR.
[2019-05-19 20:12] VITALS: BP 102/62
--- NOTE | 2019-05-20 02:45 | NUR ---
PT CALM AND REMAINS ASLEEP.
--- NOTE | 2019-05-20 04:53 | NUR ---
PT REMAINS ASLEEP AND CALM. NO EPISODE OF AGITATION. SHE HAD NO C/O PAIN. NO RESP. DISTRESS. ALL NEEDS ATTENDED TO. SITTER REMAINS AT BEDSIDE.
[2019-05-20 06:14] VITALS: BP 100/65
[2019-05-20 06:49] LABS: BASOPHIL % 0.6 % (0-2); PLATELET COUNT 298 x10^3mcL (130-400)
[2019-05-20 06:56] LABS: RED CELL DISTRIBUTION WIDTH 15.3 % (11.5-14.5)
[2019-05-20 07:18] LABS: CALCIUM 8.1 mg/dL (8.5-10.1); CARBON DIOXIDE 24.9 mmol/L (21-32); CHLORIDE SERUM 105 mmol/L (98-107); CREATININE SERUM 0.9 mg/dL (0.6-1.0); GFR1 > 60 mL/min; GLUCOSE SERUM 81 mg/dL (74-106); MAGNESIUM 1.9 mg/dL (1.8-2.4); POTASSIUM SERUM 4.3 mmol/L (3.5-5.1); SODIUM SERUM 139 mmol/L (136-145)
--- NOTE | 2019-05-20 07:35 | NUR ---
RECEIVED PT IN BED. SLEEPING THIS TIME. SITTER AT BEDSIDE FOR PT SAFTEY,5150 HOLD. SAFTEY PRECAUTIONS ARE IN PLACE. DENIES ANY PAIN. WILL MONITOR.
[2019-05-20 09:00] VITALS: BP 98/51
--- NOTE | 2019-05-20 09:00 | NUR ---
PT WOKE UP, ATE BREAKFAST AND WENT BACK TO BED FOR SLEEP. STABLE. V/S STABLE. DENIES ANY PAIN. CALM THIS TIME. SITTER AT BEDSIDE FOR 5150 HOLD.
--- NOTE | 2019-05-20 09:15 | NUR ---
Received change of shift report, will continue to monitor notes and facilitate placement
--- NOTE | 2019-05-20 12:26 | NUR ---
Initial Nutrition Assessmeny Dx: Polysubstance abuse, AMS PMHx: Unable to obtain PSHx: Unable to obtain Labs: Nutrition related WNL Meds: Ativan, Colace, D50%, Seroquel, Tylenol Diet: Regular PO intake since admission: 75-100% Ht: 60" (152 cm) Wt: 68 kg BMI: 29.3 (Overweight) IBW: 100# %IBW: 149% UBW: 140-145# AJBW: 112# (51 kg) Age: 39 y/o female Food Allergies: NKFA Skin: Intact Kem: 22 Edema: None GI: Last BM: x 1 (05/18) Pt. admitted for multiple substance abuse per provider H and P reports. Continues to await for psych facility placement at this time per provider progress notes. Tolerating regular diet well with no reported GI distress and denies any history of recent weight changes prior to admission. No reports of side effects from psychotropic medications affecting nutritional status/appetite. Problem with: N/V/D/C: None Problems with: Chewing: N Swallowing: N Current appetite: Good Recent wt change: None %wt change: N/A Vitamin/Supplement use: None Special diet at home: Regular Physical activity: Sedentary lifestyle, does not exercise on a regular basis Nutrition education given (specify specific nutrition education and handout given): No diet education was provided during visit. Estimated Nutritional Needs Based on adjusted body weight (51 kg) Energy: 8270-9655 kcal/day (23-25 kcal/kg for wt maintenance) Protein: 41-51 g/day (0.8-1.0 g/kg for wt maintenance) Fluid: 3873-0444 mL/day (1 mL/kcal) Nutrition Diagnosis: 1. Overweight r/t sedentary lifestyle and possible food-drug interaction(s) AEB pt. BMI 29.3 kg/m2, reports of not participating physical activities on a regular basis, and potential side effects from psychotropic medications affecting nutritional status. Intervention 1. Continue regular diet as ordered and as tolerated. If PO intake <75% by following assessment, consider adding ONS Ensure Enlive BID for supplementation. Monitor/Evaluate Goal: PO intake at least 75% of estimated needs Monitor: PO intake, Labs, GI function F/U in 7 days as low risk (05/27)
--- NOTE | 2019-05-20 12:27 | NUR ---
Intervention 1. Continue regular diet as ordered and as tolerated. If PO intake <75% by following assessment, consider adding ONS Ensure Enlive BID for supplementation.
--- NOTE | 2019-05-20 13:00 | NUR ---
PT WOKE UP, ATE LUNCH AND WENT BACK TO BED FOR SLEEP. CALM THIS TIME. SITTER AT BEDSIDE FOR HERMAN,5150.
--- NOTE | 2019-05-20 15:38 | NUR ---
PT IS CRYING, GETTING EMOTIONAL. SHE SAID SHE WANT TO GO HOME BUT PT IS 5150 HOLD. GETTING ANGRY. EMOTIONAL SUPPORT GIVEN. ATIVAN PO GIVEN ORDERED. SITTER AT BEDSIDE FOR SAFTEY. SAFTEY PRECAUTIONS ARE IN PLACE. WILL MONITOR.
--- NOTE | 2019-05-20 16:39 | NUR ---
PT IS SLEEPING THIS TIME. CALM. SITTER AT BEDSIDE FOR SAFTEY, STABLE.
[2019-05-20 18:13] VITALS: BP 96/62
--- NOTE | 2019-05-20 19:15 | NUR ---
RECEIVED PT IN BED TALKING TO 2 VISITORS AT BEDSIDE. SHE IS ALERT,ORIENTED X4. SHE IS TENSE BUT QUIET AT THIS TIME. SHE IS REQUESTING FOR SLEEPING PILL. NO SOB NOTED. SHE HAS NO C/O PAIN. PT REFUSED IV REINSERTION PER REPORT. SITTER AT BEDSIDE.
--- NOTE | 2019-05-20 19:20 | NUR ---
PT RESTING IN BED COMFORTABLY. DENIES ANY PAIN. STABLE. GAVE REPORT TO POLE PEELING MACHINE OPERATOR HELPER NURSE. SITTER AT BEDSIDE.
[2019-05-20 19:30] VITALS: BP 108/68
--- NOTE | 2019-05-20 21:15 | NUR ---
PT STILL AWAKE AND NOW ASKING FOR ANOTHER SLEEPING PILL. RESIDENT INFORMED AND GAVE ORDER. PT MEDICATED W/ TRAZODONE 50 MG PO FOR SLEEP.
--- NOTE | 2019-05-20 22:30 | NUR ---
PT APPEARS CALM AND SLEEPING COMFORTABLY.
--- NOTE | 2019-05-21 00:32 | NUR ---
PT AWAKE AT THIS TIME AND AGAIN REQUESTING FOR MED TO HELP HER SLEEP. PT MEDICATED W/ ATIVAN 1 MG PO.
--- NOTE | 2019-05-21 04:31 | NUR ---
Notified charge nurse Seble POWERS there are still no vacancy at any of the designated facilities.
--- NOTE | 2019-05-21 05:18 | NUR ---
PT SLEPT WELL AFTER LAST DOSE OF ATIVAN. SHE REMAINED CALM THOUGHOUT THE NIGHT. SHE HAD NO C/O PAIN. ALL NEEDS ATTENDED TO. SITTER AT BEDSIDE.
--- NOTE | 2019-05-21 06:55 | NUR ---
PT ASLEEP. TRIED TO TAKE VITAL SIGNS BUT REFUSED AT THIS TIME.
--- NOTE | 2019-05-21 07:55 | NUR ---
A+OX4, NO RESPIRATORY, MEDSURG, PULSES MODERATE AND EQUAL DIEUDONNE, NO EDEMA NOTED, LUNG SOUNDS CTA, TOLERATING RA, BOWEL SOUNDS ACTIVE, VOIDING FREELY, GENERALIZED WEAKNESS, AMBULATORY, R LATERAL UPPER THIGH HEALING WITH SCRATCHES PRODUCT SUPPORT CONSULTANT, PT CONT TO REFUSE IV ACCESS, MD AWARE, SITTER AT BEDSIDE FOR 5150 PRECAUTIONS.
[2019-05-21 09:10] VITALS: BP 94/52
--- NOTE | 2019-05-21 09:48 | NUR ---
PT RESTING IN BED, NO RESPIRATPRY DISTRESS NOTED, COOPERATIVE, SITTER AT BEDSIDE, CALL LIGHT WITHIN REACH.
--- NOTE | 2019-05-21 12:07 | NUR ---
PT RESTING IN BED WITH BOTH EYES CLOSED, APPEARS TO BE SLEEPING, NO RESPIRATORY DISTRESS NOTED, SITTER AT BEDSIDE, CALL LIGHT WITHIN REACH.
--- NOTE | 2019-05-21 13:25 | NUR ---
PT RESTING IN BED, NO RESPIRATORY DISTRESS NOTED, PT ENCOURAGED TO EAT, SITTER AT BEDSIDE, CALL LIGHT WITHIN REACH.
--- NOTE | 2019-05-21 15:58 | NUR ---
PT RESTING IN BED, NO RESPIRATORY DISTRESS NOTED, DENIES PAIN, SITTER AT BEDSIDE, CALL LIGHT WITHIN REACH.
--- NOTE | 2019-05-21 17:15 | NUR ---
PT RESTING IN BED, NO RESPIRATORY DISTRESS NOTED, DENIES PAIN, SITTER AT BEDSIDE, CALL LIGHT WITHIN REACH.
[2019-05-21 17:24] VITALS: BP 104/65
--- NOTE | 2019-05-21 18:19 | NUR ---
PT COMPLAINING OF ANXIETY, ATIVAN PO GIVEN, NO RESPIRATORY DISTRESS NOTED, SITTER AT BEDSIDE, CALL LIGHT WITHIN REACH.
--- NOTE | 2019-05-21 19:35 | NUR ---
RECEIVED PT FROM AM NURSE EARL. PT LAYING DOWN IN BED WITH FAMILY AT [facility]. PT AAOX4, ABLE TO MAKE NEEDS KNWON. MED-ROMULO, DENIES CP/PRESSURE AT THIS TIME. PALPABLE PULSES TO ALL EXTREMETIES. NO EDEMA NOTED. LUGN SOUNDS CTA. BREATHING EVEN AND UNLABORED ON RA. NO ACUTE DISTRESS NOTED. ABD SOFT AND NONDISTENDED. ACTIVE BS X4 QUAD. LAST BM 05/15/19. VOIDS FREELY, BRP. AMBULATORY. SCRATCHES TO RIGHT THIGH, SALES RECEPTIONIST. PT REFUSES TO HAVE IV ACCESS. PT DENIES SUICIDAL IDEATION. SITTER AT [facility]. BED AT LOWEST SETTING. SIDE RAILS X2 UP. CALL LIGHT WITHING REACH. WILL CONTINUE TO MONITOR.
--- NOTE | 2019-05-21 19:43 | NUR ---
ENDORSED CARE TO HUGO POWERS.
[2019-05-21 20:14] VITALS: BP 103/64
--- NOTE | 2019-05-21 21:26 | NUR ---
Called the following facilities: [facility]
--- NOTE | 2019-05-21 22:13 | NUR ---
PT C/O INSOMNIA, RECEIVED ORDER FOR AMBIER FROM DR RAMOS. MEDICATED WITH DEDE PER OCT. WILL CONTINUE TO MONITOR.
--- NOTE | 2019-05-22 01:15 | NUR ---
PT LAYIGN DOWN IN BED, C/O DIFFICULTY SLEEPING AND FEELING ANXIOUS. MEDICATED WITH PRN ATIVAN PER OCT. BED AT LOWEST SETTING. SIDE RAILS X2 UP. CALL LIGHT WITHING REACH. SITTER AT BESIDE. WILL CONTINUE TO MONITOR.
--- NOTE | 2019-05-22 02:49 | NUR ---
At this time there are still no vacancy at any of the designated facilities will notify charge nurse when placenemt is found.
[2019-05-22 05:42] VITALS: BP 101/58
--- NOTE | 2019-05-22 05:47 | NUR ---
PT SLEPT AT INTERVALS THROGHOUT THE NIGHT, BREATHING EVEN AND UNLABORED ON RA. NO ACUTE CHANGES DURING SHIFT. ALL NEEDS ASSESSED AND ATTENDED TO. BED AT LOWEST SETTING. CALL LIGHT WITHING REACH. SITTER AT BEDSIDE. WILL ENDORSE CARE TO AM NURSE.
[2019-05-22 09:21] VITALS: BP 96/57
--- NOTE | 2019-05-22 09:22 | NUR ---
PATIENT SAT UP IN BED CALM, J2EE CONSULTANT AT BEDSIDE TAKING VITALS. ALL PO MEDS ADMINISTERED. SPRITE OFFERED PER REQUEST, NEEDS MET. CALL LIGHT WITHIN REACH. SITTER REMAIN AT BEDSIDE.
--- NOTE | 2019-05-22 12:42 | NUR ---
AFTER BEDBATH PATIENT GOT VERY ANXIOUS, WANT TO TALK TO DOCTOR AND WANT TO LEAVE, DELPHI DEVELOPER PEPE CAME IN WITH RN TALK TO PATIENT AND UPDATE PATIENT THAT WAITING FOR DR. ALLEN TO SEE PATIENT FOR CLEARANCE; BUT IF PATIENT DECIDED TO LEAVE AT THIS TIME; PER HOSPITAL POLICY WE ARE REQUIRE TO CALL [place] [facility] FOR [place]. ATIVAN 1MP PO ADMINISTERED. CONT TO MONITOR.
[2019-05-22 16:28] VITALS: BP 100/54
--- NOTE | 2019-05-22 16:37 | NUR ---
PATIENT SLEEPING AT THIS TIME, NO DISTRESS NOTED. SITTER REMAIN AT BEDSIDE CONT TO MONITOR PATIENT FOR SAFETY.
--- NOTE | 2019-05-22 16:58 | NUR ---
PATIENT AWAKE/ALERT VISITOR AT BEDSIDE; PATIENT ATTEMPT TO LEAVE THE ROOM. PATIENT WANT TO GO OUTSIDE FOR FRESH AIR, REINFORCED POLICY 5150 TO PATIENT, IF PATIENT LEAVE THE UNIT WILL CALL POLICE. PATIENT WHEN BACK TO THE ROOM AND IN BED. CONT TO MONITOR. CN CALL AND LEFT MESSAGE FOR DR. ALLEN.
--- NOTE | 2019-05-22 17:57 | NUR ---
Packet has been sent to the following facilities for review: [facility]
--- NOTE | 2019-05-22 18:25 | NUR ---
PATIENT RESTING IN BED CALM AT THIS TIME. NO DISTRESS NOTED. SITTER REMAIN AT BEDSIDE.
--- NOTE | 2019-05-22 19:31 | NUR ---
RECEIVED REPORT FROM AM NURSE. PT AAOX4, ABLE TO MAKE NEEDS KNOWN. MED0-SURG. DENIES ANY CP/PRESSURE AT THIS TIME. PALPABLE PULSES TO ALL EXTREMETIES. NO DEDEMA NOTED. LUNG SOUNDS CTA. BREATHING EVEN AND UNLABORED ON RA. ACTIVE BS X4 QUAD, DENIES N/V/D. VOIDS FREELY BRP. AMBULATORY. NO IV ACCESS. PT REFUSED TO HAVE IV INSERTED. PT STATING SHE WANTS TO GO HOME. DR ALLEN CAME TO TALK TO PT. ANSWERED ALL QUESTIONS AND CONSERNS. PT STATES UNDERSTANDING AND HAS NO MORE QUESTIONS. OKAY TO GO HOME PER DR ALLEN. BED AT LOWEST SETTING. SIDE RAILS X2 UP. CALL LIGHT WIHTING REACH. SITTER AT BEDSIDE. WILL CONTINUE TO MONITOR.
--- NOTE | 2019-05-22 20:00 | NUR ---
CALLED DR CHANEY REGARDING PT WANTING TO GO HOME, AND [address] HAS BEEN D[address]S [address] ALLEN. DR CHANEY AT BEDSIDE TALKING TO PT. PER DR CHANEY PT OKAY TO GO HOME. AWAITING FOR D/C ORDER.
[2019-05-22 21:11] VITALS: BP 100/54
--- NOTE | 2019-05-22 21:20 | NUR ---
PT HAS BEEN DISCHARGED. ALL BELONGINGS GIVEN. FAMILY CAME TO TECHNICIAN CHEMICAL CLEANING PT. ALL QUESTIONS AND CONSERNS ANSWERED. PT STATES UNDERSTANDING AND HAS NO QUESTIONS.
== END 2019-05-22 21:25 | disposition home or self-care (01) | DRG 812 ==
LOC: ED 21:47 → DU 05-13 01:09 → MU 05-13 01:09 → DU 05-13 01:09 → MU 05-13 02:26 → DU 05-13 02:30 → MU 05-17 15:51
PROVIDERS: General Practice; Specialist; ADMIT Internal Medicine
DX: T43.621A Poisoning by amphetamines, accidental (unintentional), initial encounter (principal); G92 Toxic encephalopathy; F15.10 Other stimulant abuse, uncomplicated; F12.10 Cannabis abuse, uncomplicated; F16.10 Hallucinogen abuse, uncomplicated; N39.0 Urinary tract infection, site not specified; Y92.89 Other specified places as the place of occurrence of the external cause; E16.2 Hypoglycemia, unspecified; F29 Unspecified psychosis not due to a substance or known physiological condition
CPT/HCPCS: 82962; G0378; G0480; J0696; J1630; J2060; J3475; J3480; J7030

== ENCOUNTER 2019-06-01 07:29 | Emergency (ER) | payer OTHER ==
[~2019-06-01] VITALS: Ht 162.6 cm; Wt 74.8 kg
[2019-06-01 07:34] VITALS: Ht 162.6 cm; Wt 74.8 kg
[2019-06-01 08:24] LABS: BASOPHIL % 1.1 % (0-2); PLATELET COUNT 390 x10^3mcL (130-400)
[2019-06-01 08:26] LABS: RED CELL DISTRIBUTION WIDTH 15.1 % (11.5-14.5)
[2019-06-01 08:38] LABS: microscopic required? NO
[2019-06-01 08:44] LABS: CALCIUM 8.1 mg/dL (8.5-10.1); CARBON DIOXIDE 27.7 mmol/L (21-32); CHLORIDE SERUM 107 mmol/L (98-107); CREATININE SERUM 0.8 mg/dL (0.6-1.0); GFR1 > 60 mL/min; GLUCOSE SERUM 82 mg/dL (74-106); POTASSIUM SERUM 3.6 mmol/L (3.5-5.1); SODIUM SERUM 142 mmol/L (136-145)
[2019-06-01 08:48] LABS: UA SPECIFIC GRAVITY 1.015 (1.005-1.035); urine erythrocyte NEGATIVE (NEGATIVE)
[2019-06-01 08:49] LABS: ALBUMIN 3.6 g/dL (3.4-5.0); ALKALINE PHOSPHATASE 75 U/L (46-116); ALT/SGPT 23 U/L (14-59); AST/SGOT 14 U/L (15-37); BILIRUBIN TOTAL 0.3 mg/dL (0.20-1.00); TOTAL PROTEIN, SERUM 6.8 g/dL (6.4-8.2)
[2019-06-01 08:53] LABS: AMPHETAMINE QUAL UR POSITIVE (See below)
[2019-06-01 15:58] VITALS: BP 135/80
== END 2019-06-01 15:10 | disposition home or self-care (01) ==
LOC: ED 07:29
PROVIDERS: Emergency Medicine
DX: F19.10 Other psychoactive substance abuse, uncomplicated (principal); F29 Unspecified psychosis not due to a substance or known physiological condition; G47.00 Insomnia, unspecified
CPT/HCPCS: J2060